=== PATIENT | male | born 1985 | race Two or more races ===

== ENCOUNTER 2024-08-02 14:27 | Inpatient (IN) | payer OTHER ==
[~2024-08-02] VITALS: Ht 175.3 cm; Wt 98.6 kg
[2024-08-02 16:11] LABS: Basophils # (auto) 0 10 ^3/uL (0-0.2); Basophils % (auto) 0.3 % (0.0-2.0); Eosinophils # (auto) 0 10 ^3/uL (0-0.8); Hematocrit 43.5 % (41.0-53.0); Hemoglobin 15.4 g/dL (13.5-17.5); Lymphocytes # (auto) 1.8 10 ^3/uL (0.4-5.4); Lymphocytes % (auto) 11.9 % (10.0-50.0); Mean Corpuscular Hgb Conc. 35.4 g/dL (32.0-36.0); Mean Corpuscular Volume 90.4 fL (80.0-100.0); Monocytes # (auto) 1.4 10 ^3/uL (0-1.3); Neutrophils % (auto) 78.8 % (37.0-80.0); Platelet Count (auto) 225 10^3/uL (140-450); Red Blood Cells 4.82 10^6/uL (4.5-5.90); Red Cell Distribution Width 12.9 % (11.8-14.3); White Blood Cell 15.2 10^3/uL (4.4-10.8)
[2024-08-02] MEDS: SODIUM CHLORIDE 0.9% 1,000 ML IV ONE (16:28)
[2024-08-02 16:39] LABS: Alanine Aminotransferase 22 U/L (7-40); Albumin 4.3 g/dL (3.2-4.8); Alkaline Phosphatase 68 U/L (46-116); Anion Gap 7 (5-15); Aspartate Aminotransferase 38 U/L (13-40); Blood Urea Nitrogen 6 mg/dL (9-23); Carbon Dioxide 23 mmol/L (20-30); Chloride 102 mmol/L (98-107); Glucose 110 mg/dL (74-106); Potassium 3.9 mmol/L (3.5-5.1); Sodium 132 mmol/L (136-145); Total Protein 7.6 g/dL (5.7-8.2)
[2024-08-02 16:42] LABS: Lipase 37 U/L (12-53)
[2024-08-02] MEDS: fentaNYL CITRATE 100 MCG/2 ML VL IV ONE ×2 (17:32→20:45)
[2024-08-02] MEDS: CIPROFLOXACIN 400MG/200ML 200 ML IV ONE (17:47)
[2024-08-02 19:09] LABS: Urine Bacteria None Seen /hpf (None Seen)
[2024-08-02 19:17] LABS: Urine Blood Negative /uL (Negative); Urine Clarity Clear (Clear); Urine Color Light-Orange (Yellow); Urine Mucus FEW (None Seen); Urine Protein, UAD 1+ (Negative); Urine Specific Gravity 1.026 (1.001-1.035); Urine Urobilinogen Normal (Negative); Urine WBC <1 /hpf (0 - 3); Urine pH 5.5 (5.0-9.0)
[2024-08-02 19:38] LABS: Amphetamine Screen, Urine Neg (NEGATIVE); Barbiturate Scree,Urine Neg (NEGATIVE); Benzodiazephine Screen, Urine Neg (NEGATIVE); Cocaine Screen, Urine Neg (NEGATIVE); Opiate Scree,Urine Neg (NEGATIVE)
[2024-08-02 19:39] LABS: Cannabinoid Screen, Urine Neg (NEGATIVE); Phencyclidine Screen, Urine Neg (NEGATIVE)
[2024-08-02] MEDS: metroNIDAZOLE 500MG/100ML 100 ML IV ONE (20:45)
[2024-08-02] MEDS: ONDANSETRON HCL 4 MG/2 ML VIAL IV ONE ×2 (20:46→23:48)
[2024-08-02] MEDS ORDERED: ONDANSETRON HCL 4 MG/2 ML VIAL IV PRN (23:30)
[2024-08-02] MEDS ORDERED: MORPHINE SULFATE INJ 2 MG/ml SYRG IV PRN (23:30)
[2024-08-02] MEDS ORDERED: NITROGLYCERIN 0.4 MG SL TAB SL PRN (23:30)
[2024-08-02] MEDS ORDERED: ACETAMINOPHEN 325 MG TAB PO PRN (23:30)
[2024-08-02] MEDS: HYDROmorphone HCL 2 MG/ML VL/or syr IV ONE (23:48)
[2024-08-02] MEDS: SODIUM CHLORIDE 0.9% 1,000 ML IV SCH (23:49)
[2024-08-03] VITALS (8 sets, daily range): BP systolic 107–133; BP diastolic 54–112; PULSE 22–101; RESP 14–22; TEMP 97.6–98.6; O2SAT 95–98
[2024-08-03] MEDS: MORPHINE SULFATE INJ 2 MG/ml SYRG IV PRN ×2 (00:04→21:49)
[2024-08-03] MEDS: HYDROmorphone HCL 2 MG/ML VL/or syr IV PRN ×2 (03:57→14:03)
[2024-08-03] MEDS: metroNIDAZOLE 500MG/100ML 100 ML IV SCH (05:33)
[2024-08-03 07:39] LABS: Alanine Aminotransferase 14 U/L (7-40); Albumin 3.8 g/dL (3.2-4.8); Alkaline Phosphatase 56 U/L (46-116); Anion Gap 5 (5-15); Aspartate Aminotransferase 18 U/L (13-40); BUN/Creatinine Ratio 7.3 (10.0-20.0); Blood Urea Nitrogen 6 mg/dL (9-23); Calcium 8.9 mg/dL (8.7-10.4); Carbon Dioxide 26 mmol/L (20-30); Chloride 104 mmol/L (98-107); Glucose 104 mg/dL (74-106); Potassium 3.6 mmol/L (3.5-5.1); Sodium 135 mmol/L (136-145)
[2024-08-03 07:40] LABS: Bilirubin, Total 1.6 mg/dL (0.2-1.0); Total Protein 6.7 g/dL (5.7-8.2)
[2024-08-03 08:43] LABS: Basophils # (auto) 0 10 ^3/uL (0-0.2); Basophils % (auto) 0.2 % (0.0-2.0); Eosinophils # (auto) 0 10 ^3/uL (0-0.8); Eosinophils % (auto) 0.2 % (0.0-7.0); Hematocrit 40.4 % (41.0-53.0); Hemoglobin 13.9 g/dL (13.5-17.5); Lymphocytes # (auto) 2.2 10 ^3/uL (0.4-5.4); Lymphocytes % (auto) 16.9 % (10.0-50.0); Mean Corpuscular Hemoglobin 31.6 pg (28.0-32.0); Mean Corpuscular Hgb Conc. 34.5 g/dL (32.0-36.0); Mean Corpuscular Volume 91.8 fL (80.0-100.0); Monocytes # (auto) 1.2 10 ^3/uL (0-1.3); Monocytes % (auto) 9.2 % (0.0-12.0); Neutrophils # (auto) 9.4 10 ^3/uL (1.6-8.6); Neutrophils % (auto) 73.5 % (37.0-80.0); Platelet Count (auto) 188 10^3/uL (140-450); Red Blood Cells 4.41 10^6/uL (4.5-5.90); White Blood Cell 12.8 10^3/uL (4.4-10.8)
[2024-08-03] MEDS: PANTOPRAZOLE 40 MG/10 ML VIAL INJ IV SCH (08:57)
[2024-08-03] MEDS: cefTRIAXone 1GM/50ML D5W 50 ML IV SCH (08:57)
[2024-08-03] MEDS: HYDROcodone-ACET 5/325MG TAB PO PRN (15:13)
[2024-08-03] MEDS: DOCUSATE SOD 100 MG CAP PO SCH (21:18)
[2024-08-04] VITALS (8 sets, daily range): BP systolic 109–131; BP diastolic 56–77; PULSE 79–92; RESP 18–22; TEMP 97.5–98.2; O2SAT 90–98
[2024-08-04 05:11] LABS: Basophils # (auto) 0 10 ^3/uL (0-0.2); Basophils % (auto) 0.4 % (0.0-2.0); Eosinophils # (auto) 0.1 10 ^3/uL (0-0.8); Eosinophils % (auto) 0.6 % (0.0-7.0); Hematocrit 37.7 % (41.0-53.0); Hemoglobin 13.4 g/dL (13.5-17.5); Lymphocytes # (auto) 1.7 10 ^3/uL (0.4-5.4); Lymphocytes % (auto) 19.4 % (10.0-50.0); Mean Corpuscular Hgb Conc. 35.4 g/dL (32.0-36.0); Mean Corpuscular Volume 90.4 fL (80.0-100.0); Monocytes # (auto) 0.9 10 ^3/uL (0-1.3); Monocytes % (auto) 10.2 % (0.0-12.0); Neutrophils % (auto) 69.4 % (37.0-80.0); Nucleated Red Blood Cells % 0.1 %; Platelet Count (auto) 180 10^3/uL (140-450); Red Blood Cells 4.18 10^6/uL (4.5-5.90); Red Cell Distribution Width 12.9 % (11.8-14.3); White Blood Cell 8.7 10^3/uL (4.4-10.8)
[2024-08-04 05:19] LABS: Anion Gap 7 (5-15); Carbon Dioxide 26 mmol/L (20-30); Chloride 105 mmol/L (98-107); Potassium 3.8 mmol/L (3.5-5.1); Sodium 138 mmol/L (136-145)
[2024-08-04 05:20] LABS: Calcium 8.8 mg/dL (8.7-10.4)
[2024-08-04 05:25] LABS: BUN/Creatinine Ratio 7.8 (10.0-20.0); Blood Urea Nitrogen 6 mg/dL (9-23); Glucose 101 mg/dL (74-106)
[2024-08-04] MEDS: MORPHINE SULFATE 4 MG/ML SYR/VIAL IV PRN (10:29)
[2024-08-04] MEDS: LACTULOSE 20Gm/30ML SOLN PO ONE (18:43)
[2024-08-04] MEDS: DOCUSATE SOD 100 MG CAP PO SCH (20:43)
[2024-08-05] VITALS (7 sets, daily range): BP systolic 103–137; BP diastolic 56–82; PULSE 62–81; RESP 16–24; TEMP 97.2–98.5; O2SAT 93–99
[2024-08-05 07:31] LABS: Basophils # (auto) 0 10 ^3/uL (0-0.2); Basophils % (auto) 0.3 % (0.0-2.0); Eosinophils # (auto) 0.1 10 ^3/uL (0-0.8); Eosinophils % (auto) 1.6 % (0.0-7.0); Hematocrit 38.7 % (41.0-53.0); Hemoglobin 13.7 g/dL (13.5-17.5); Lymphocytes # (auto) 1.4 10 ^3/uL (0.4-5.4); Lymphocytes % (auto) 23.5 % (10.0-50.0); Mean Corpuscular Hemoglobin 31.9 pg (28.0-32.0); Mean Corpuscular Hgb Conc. 35.4 g/dL (32.0-36.0); Mean Corpuscular Volume 90.2 fL (80.0-100.0); Monocytes # (auto) 0.7 10 ^3/uL (0-1.3); Monocytes % (auto) 11.6 % (0.0-12.0); Neutrophils # (auto) 3.8 10 ^3/uL (1.6-8.6); Nucleated Red Blood Cells % 0.1 %; Platelet Count (auto) 226 10^3/uL (140-450); Red Blood Cells 4.29 10^6/uL (4.5-5.90); Red Cell Distribution Width 12.8 % (11.8-14.3)
[2024-08-06 01:00] VITALS: BP 122/79; PULSE 71; RESP 17; TEMP 98.2; O2SAT 95
[2024-08-06 05:00] VITALS: BP 124/77; PULSE 68; RESP 18; TEMP 98.4; O2SAT 96
[2024-08-06 08:00] VITALS: PULSE 87; RESP 17
[2024-08-06 13:15] VITALS: BP 114/78; PULSE 67; RESP 15; TEMP 98; O2SAT 99
[2024-08-06] MEDS ORDERED: LEVO500T91 PO (13:56)
[2024-08-06] MEDS ORDERED: MET500T PO (13:56)
[2024-08-06] MEDS ORDERED: HYDR-4902 PO (14:08)
[2024-08-06] MEDS: FUROSEMIDE 20 MG TAB PO ONE (15:17)
[2024-08-06 15:23] VITALS: BP 114/78
== END 2024-08-06 17:10 | disposition home or self-care (01) | DRG 392 ==
LOC: EDBD 14:27 → ER 14:27 → WEST WING 23:26 → OVERFLOW 23:26 → WEST WING 08-03 03:02
PROVIDERS: ADMIT Nurse Practitioner Family; ATTEND Nurse Practitioner Acute Care
DX: K52.9 Noninfective gastroenteritis and colitis, unspecified (principal); K57.32 Diverticulitis of large intestine without perforation or abscess without bleeding; K59.00 Constipation, unspecified; E66.9 Obesity, unspecified; K63.9 Disease of intestine, unspecified; Z68.32 Body mass index [BMI] 32.0-32.9, adult
CPT/HCPCS: 36415; 71045; 74176; 80048; 80053; 80307; 81001; 82378; 83605; 83690; 85025; G0378; J2405; J2470; J3490